=== PATIENT | female | born 1975 | race Caucasian/White ===

== ENCOUNTER 2020-01-05 14:01 | Outpatient (CLI) | payer OTHER, SELFPAY ==
[2020-01-06 13:55] LABS: SARS-CoV-2 RNA PCR Negative
== END 2020-01-05 14:02 | disposition home or self-care (01) ==
LOC: CHSLAB 14:07
PROVIDERS: PCP Family Medicine; Visit Provider Family Medicine
DX: R51 Headache (principal)
CPT/HCPCS: 87635; C9803; U0003

== ENCOUNTER 2020-12-14 13:40 | Emergency (ER) | payer OTHER, SELFPAY ==
--- NOTE | ~2020-12-14 | XR_ITS ---
EXAMINATION: XR chest 2V DATE: 12/14/2020 14:27 INDICATION: Midsternal chest pain TECHNIQUE: Frontal and lateral views of the chest are obtained COMPARISON: 11/10/2020 FINDINGS: The lungs are free of acute opacities. There is no pleural effusion or pneumothorax. The ca rdiomediastinal silhouette is normal. The visualized bones and soft tissues are unremarkable. IMPRESSION: 1. No acute cardiopulmonary abnormality. Reviewed, dictated and finalized at location A.
[2020-12-14 13:40] VITALS: BP 167/54; PULSE 75; RESP 20; TEMP 36.7; O2SAT 100
--- NOTE | 2020-12-14 13:51 | ECG_ITS ---
Measurements Intervals [place] Rate: 71 P: 39 DC: 139 QRS: 62 QRSD: 81 T: 41 QT: 380 QTc: 414 Interpretive Statements SINUS RHYTHM BASELINE ARTIFACT- I, II, III, AVR, AVL, AVF, V1, V3 NORMAL ECG Electronically Signed On 12-14-2020 16:43:42 CDT by Oskar Bueno D.O.
--- NOTE | 2020-12-14 13:51 | ED.CHESTPAIN ---
HPI - Chest Pain General Chief Complaint: Chest Pain Stated Complaint: Chest pains Source: patient and RN notes reviewed Mode of arrival: ambulatory Limitations: no limitations History of Present Illness complaint: chest pain Onset (ago): minute(s) (20) Timing of current episode: episodic Prior episodes: Yes Onset: during exertion Pain location: substernal Pain radiation: none Quality: tightness Relieving factors: nothing Exacerbating factors: nothing Treatment prior to arrival: none Related Data Home Medications Medication Instructions Recorded Confirmed No Home Medications 11/10/20 12/14/20 Allergies Allergy/AdvReac Type Severity Reaction Status Date / Time No Known Allergies Allergy Unknown Verified 11/10/20 08:16 Review of Systems Review of Systems: All systems reviewed & are unremarkable except as noted in HPI and below Constitutional: Constitutional: Denies chills and Denies fever(s) Cardiovascular: Cardiovascular: Denies diaphoresis, Denies edema, Denies irregular heart rhythm and Reports lightheadedness Respiratory: Respiratory: Denies cough and Denies dyspnea Gastrointestinal: Gastrointestinal: Denies nausea and Denies vomiting Neurologic: Reports dizziness and Reports headache(s) ( Not new has migraines) [facility] Past Medical History Medical History (Updated 12/14/20 @ 16:39 by Sudarshan Jimenez MD) Migraines Surgical History Surgical History (Updated 12/14/20 @ 14:04 by Sudarshan Jimenez MD) No pertinent past surgical history Social History Social History (Updated 12/14/20 @ 14:04 by Sudarshan Jimenez MD) Smoking status: Never smoker Alcohol use details: rare Substance use: never Course Vital Signs Vital signs: Vital Signs Temperature 36.7 C 12/14/20 13:40 Pulse Rate 75 12/14/20 13:40 Respiratory Rate 12/14/20 13:40 Blood Pressure 167/54 H 12/14/20 13:40 Pulse Oximetry 100 12/14/20 13:40 Temperature 36.7 C 12/14/20 13:40 Pulse Rate 62 12/14/20 16:48 Respiratory Rate 20 12/14/20 13:40 Blood Pressure 115/86 12/14/20 16:48 Pulse Oximetry 99 12/14/20 16:48 MDM - Chest Pain Differential Diagnosis Differential diagnosis: Likely unstable angina pectoris, atypical chest pain and chest pain Lab Data Attestation: I reviewed the patient's lab results. Result diagrams: 12/14/20 13:51 12/14/20 13:51 Labs: Lab Results 12/14/20 12/14/20 12/14/20 Range/Units 13:51 13:51 16:02 WBC 7.2 (4.8-10.8) K/mm3 RBC 4.54 (4.20-5.40) M/mm3 Hgb 13.4 (12.0-15.0) g/dL Hct 40.3 (35.0-49.0) % MCV 88.8 (78.0-102.0) fL MCH 29.5 (27.0-31.0) pg MCHC 33.3 (32.0-36.0) g/dL RDW 12.6 (11.6-14.4) % Plt Count 251 (150-420) K/mm3 MPV 9.8 (9.2-11.8) fl Immature Gran % (Auto) 0.1 H (0.0-0.0) % Neut % (Auto) 47.4 L (50.0-70.0) % Lymph % (Auto) 39.1 (18.0-42.0) % [place] % (Auto) 10.3 (2.0-11.0) % Eos % (Auto) 2.5 (1.0-6.0) % Baso % (Auto) 0.6 (0.0-1.0) % Lymph # (Auto) 2.80 (1.10-4.50) K/mm3 [place] # (Auto) 0.74 (0.10-0.90) K/mm3 Eos # (Auto) 0.18 (0.02-0.50) K/mm3 Baso # (Auto) 0.04 (0.00-0.10) K/mm3 Abs Immat Gran (auto) 0.01 H (0.00-0.00) K/mm3 Absolute Neuts (auto) 3.4 (1.7-7.2) K/mm3 Absolute Nucleated RBC 0.00 (0.00-0.00) K/mm3 Nucleated RBC % 0.0 (0-0.0) % Sodium 140 (136-145) mmol/L Potassium 3.9 (3.5-5.1) mmol/L Chloride 104 (98-108) mmol/L Carbon Dioxide 29 (21-32) mmol/L Anion Gap 7 L (8-16) mmol/L BUN 15 (7-18) mg/dL Creatinine 0.70 (0.55-1.02) mg/dL Estim Creat Clear Calc Not Reportable Estimated GFR > 60 (59 - ) Glucose 89 (70-99) mg/dL Calculated Osmolality 289 (285-295) mOsm/kg Calcium 8.9 (8.5-10.1) mg/dL Magnesium 1.8 (1.8-2.4) mg/dL Total Bilirubin 0.5 (0.00-1.00) mg/dL AST 14 L (15-37) U/L ALT 21 (14-59) U/L A
[2020-12-14] MEDS: ASPIRIN 81 MG CHEWABLE TABLET 324 MG PO (14:05)
[2020-12-14 14:09] LABS: Basophils Absolute Auto 0.04 K/mm3 (0.00-0.10); Basophils Percent Auto 0.6 % (0.0-1.0); Eosinophils Absolute Auto 0.18 K/mm3 (0.02-0.50); Eosinophils Percent Auto 2.5 % (1.0-6.0); Hematocrit 40.3 % (35.0-49.0); Hemoglobin 13.4 g/dL (12.0-15.0); Immature Granulocyte Absolute 0.01 K/mm3 (0.00-0.00); Immature Granulocyte Percent A 0.1 % (0.0-0.0); Lymphocytes Percent Auto 39.1 % (18.0-42.0); Mean Corpuscular HGB Conc 33.3 g/dL (32.0-36.0); Mean Corpuscular Hemoglobin 29.5 pg (27.0-31.0); Mean Corpuscular Volume 88.8 fL (78.0-102.0); Mean Platelet Volume 9.8 fl (9.2-11.8); Monocytes Absolute Auto 0.74 K/mm3 (0.10-0.90); Monocytes Percent Auto 10.3 % (2.0-11.0); Neutrophils Absolute Auto 3.4 K/mm3 (1.7-7.2); Neutrophils Percent Auto 47.4 % (50.0-70.0); Platelet Count Result 251 K/mm3 (150-420); Red Blood Count 4.54 M/mm3 (4.20-5.40); Red Cell Distribution Width 12.6 % (11.6-14.4); White Blood Count 7.2 K/mm3 (4.8-10.8)
[2020-12-14 14:33] LABS: Alanine Aminotransferase 21 U/L (14-59); Albumin Level 4.3 g/dL (3.4-5.0); Alkaline Phosphatase 58 U/L (46-116); Anion Gap 7 mmol/L (8-16); Aspartate Amino Transferase 14 U/L (15-37); Bilirubin,Total 0.5 mg/dL (0.00-1.00); Blood Urea Nitrogen 15 mg/dL (7-18); Calcium 8.9 mg/dL (8.5-10.1); Carbon Dioxide 29 mmol/L (21-32); Chloride 104 mmol/L (98-108); Estimated Glomerular Filt Rate > 60; Glucose 89 mg/dL (70-99); Magnesium 1.8 mg/dL (1.8-2.4); Osmolality Calculated 289 mOsm/kg (285-295); Potassium 3.9 mmol/L (3.5-5.1); Sodium 140 mmol/L (136-145); Thyroid Stimulating Hormone 1.52 uIU/mL (0.36-3.74); Troponin I 4.7 ng/L (0.00-60.4)
[2020-12-14 15:22] VITALS: BP 143/88; PULSE 60; O2SAT 99
[2020-12-14 16:23] LABS: Troponin I 6.3 ng/L (0.00-60.4)
[2020-12-14 16:48] VITALS: BP 115/86; PULSE 62; O2SAT 99
== END 2020-12-14 16:49 | disposition home or self-care (01) ==
PROVIDERS: Emergency Provider Emergency Medicine; PCP Family Medicine
DX: R07.89 Other chest pain (principal)
CPT/HCPCS: 36415; 71046; 80053; 83735; 84443; 84484; 85025; 93005; 99283; 99284; A9270

== ENCOUNTER 2022-12-30 14:26 | Emergency (ER) | payer OTHER, SELFPAY ==
--- NOTE | ~2022-12-30 | XR_ITS ---
EXAMINATION: XR ankle LT min 3V DATE: 12/30/2022 15:28 INDICATION: Lateral left ankle pain and swelling post fall TECHNIQUE: Anteroposterior, oblique, mortise, and lateral views of the left ankle were obtained. COMPARISON: None. FINDINGS: Alignment is normal. No fracture. Joint spaces are well maintained. No ankle joint effusion. Soft t issue swelling about the lateral malleolus extending into the ankle and over the dorsum of the hindfo ot. IMPRESSION: 1. No osseous abnormality. Reviewed, dictated and finalized at location A. IMPRESSION: 1. No osseous abnormality.
[2022-12-30 14:52] VITALS: BP 146/81; PULSE 85; RESP 18; TEMP 36.8; O2SAT 99
--- NOTE | 2022-12-30 15:16 | ED.LOWEXIN ---
HPI - Extremity Injury (Lower) General Chief Complaint: Extremity Injury, Lower Stated Complaint: left ankle injury Time Seen by Provider: 12/30/22 14:59 History of Present Illness HPI Narrative: Patient is a 47-year-old female presenting with an ankle injury. Patient states that she was painting when she decided to get off the ladder. States that she twisted both of her ankles as she was getting off of the ladder. States that then her left ankle started to swell and her whole leg felt sore. Denies further injuries or complaints. Related Data Home Medications Medication Instructions Recorded Confirmed No Home Medications 11/10/20 12/14/20 Allergies Allergy/AdvReac Type Severity Reaction Status Date / Time No Known Allergies Allergy Unknown Verified 12/30/22 14:55 Review of Systems Review of Systems: All systems reviewed & are unremarkable except as noted in HPI and below PMFSH Past Medical History Medical History Migraines Surgical History Surgical History No pertinent past surgical history Social History Social History Smoking status: Never smoker Alcohol use details: rare Substance use: never Exam Narrative: GENERAL: Well-appearing, well-nourished, and in no acute distress. HEAD: Normocephalic, atraumatic. EYES: PERRLA and EOMI. ENT: Grossly normal NECK: Supple. CHEST: No respiratory distress. HEART: Regular rate and rhythm, Normal peripheral pulses. ABDOMEN: Nondistended EXTREMITIES: Left ankle with lateral swelling and mild tenderness, ROM intact though somewhat limited secondary to pain, DP pulses 2+ bilaterally SKIN: Warm, dry, no rash. NEURO: Alert and oriented x3. PSYCH: Normal mood and affect. Course Vital Signs Vital signs: Vital Signs Temperature 98.3 F 12/30/22 14:52 Pulse Rate 85 12/30/22 14:52 Respiratory Rate 18 12/30/22 14:52 Blood Pressure 146/81 H 12/30/22 14:52 Pulse Oximetry 99 12/30/22 14:52 Oxygen Delivery Room Air 12/30/22 14:52 Temperature 98.3 F 12/30/22 14:52 Pulse Rate 75 12/30/22 16:16 Respiratory Rate 15 12/30/22 16:16 Blood Pressure 128/76 12/30/22 16:16 Pulse Oximetry 98 12/30/22 16:16 Oxygen Delivery Room Air 12/30/22 14:52 MDM - Extremity Injury (Lower) MDM Narrative Medical decision making narrative: Patient is a 47-year-old female presenting with left ankle pain and swelling after twisting it getting off a ladder. Vitals stable. Exam remarkable for the above. Patient already took Tylenol and ibuprofen. X-ray without acute osseous abnormalities. Discussed the imaging with the patient. Advised appropriate supportive care. Advised PCP and orthopedic follow-up. Appropriate return precautions given. Patient voiced understanding and is agreeable with plan. Discharged in stable condition. Differential Diagnosis Differential diagnosis: Likely ankle sprain and strain and ankle fracture Medical Records Attestation: I reviewed the patient's medical records. Imaging Data Radiologist's impression: ITS Impressions Ankle X-Ray 12/30/22 15:43 IMPRESSION: 1. No osseous abnormality. Critical Care Time Critical Care Time Critical Care Time: No Discharge Plan Discharge Clinical Impression: Ankle sprain and strain Patient Disposition: Home, Self-Care Condition: Stable Instructions: Antibiotic Form, Ankle Sprain (ED) Additional Instructions: X-rays show no broken bones. Please use Tylenol and ibuprofen for pain control. Please elevate the ankle and apply ice. We recommend following up with PCP within 1-3 days. If your symptoms worsen, you develop chest pain, shortness of breath, numbness or weakness, vomiting, fevers >100.4F, or other concerning symptoms arise, please return to the ER. [place]
[2022-12-30 16:16] VITALS: BP 128/76; PULSE 75; RESP 15; O2SAT 98
== END 2022-12-30 16:17 | disposition home or self-care (01) ==
PROVIDERS: Emergency Provider Emergency Medicine; PCP Family Medicine
DX: S93.402A Sprain of unspecified ligament of left ankle, initial encounter (principal); X50.0XXA Overexertion from strenuous movement or load, initial encounter
CPT/HCPCS: 73610; 99283

== ENCOUNTER 2023-01-05 14:23 | Outpatient (CLI) | payer OTHER, SELFPAY ==
--- NOTE | ~2023-01-05 | XR_ITS ---
EXAMINATION: XR ankle LT min 3V DATE: 01/05/2023 14:44 INDICATION: Left ankle pain TECHNIQUE: Anteroposterior, lateral, mortise, and additional oblique view of the ankle were obtained. COMPARISON: 12/30/2022 FINDINGS: There is diffuse soft tissue swelling of ankle with interval worsening. Bone alignment is n ormal. There is no fracture. IMPRESSION: 1. Worsening soft tissue swelling of ankle without acute osseous abnormality identified. Reviewed, dictated and finalized at location B. IMPRESSION: 1. Worsening soft tissue swelling of ankle without acute osseous abnormality id entified.
== END 2023-01-05 14:24 | disposition home or self-care (01) ==
LOC: CHSIMG 14:25
PROVIDERS: PCP Family Medicine; Visit Provider Family Medicine
DX: M25.572 Pain in left ankle and joints of left foot (principal); M25.472 Effusion, left ankle
CPT/HCPCS: 73610